=== PATIENT | male | born 1965 | race Caucasian/White ===

== ENCOUNTER → 2023-01-23 | Outpatient (CLI) | payer OTHER, SELFPAY ==
[2023-01-23 12:08] LABS: Absolute Lymphocyte Count 1.74 X10^3/uL (0.83-4.51); Absolute Neutrophil Count 3.8 X10^3/uL (2.0-7.7); Basophil# 0.05 X10^3/uL; Basophil% 0.7 % (0-1); Eosinophil# 0.24 X10^3/uL; Eosinophils% 3.6 % (0-5); Hematocrit 45.8 % (40-54); Hemoglobin 15.5 g/dL (13.0-16.5); Lymphocyte # 1.74 X10^3/ul (0.83-4.51); Mean Corp Hgb Conc 33.8 g/dL (32-36); Mean Corpuscular Volume 88.6 fL (80-94); Mean Platelet Vol. 11.1 fl (6.2-12.0); Monocyte# 0.87 X10^3/uL; NRBC Flagged by Analyzer 0 % (0-5); Neutrophil # 3.78 X10^3/uL (2.7-7.7); Neutrophil % 56.4 % (47-70); Platelet Count 204 K/mm3 (150-450); RBC Distribution Width CV 12.7 % (11.6-14.6); RBC Distribution Width SD 41.1 fl (35.1-43.9); Red Blood Count 5.17 M/mm3 (4.6-6.2); White Blood Count 6.7 K/mm3 (4.4-11.0)
[2023-01-23 12:32] LABS: Hemoglobin A1c 6.7 % (3.8-5.6)
[2023-01-23 12:42] LABS: Vitamin B12 359 pg/mL (211-911); Vitamin D,25 Hydroxy 24.5 ng/mL
[2023-01-23 12:51] LABS: ALB/GLOB Ratio 0.9 RATIO (0.9-2.4); AST(SGOT) 20 U/L (15-37); Alanine Aminotransfer ALT/SGPT 28 U/L (16-61); Alkaline Phosphatase 76 U/L (45-117); Anion Gap 5 (5-15); BUN 15 mg/dL (7-18); BUN/Creat Ratio 13.6 RATIO (10-20); Calcium,Total 9.1 mg/dL (8.5-10.1); Chloride 106 mmol/L (98-107); Cholesterol 170 mg/dL (200); EST Glomerular Filtration Rate 73 mL/min (>60); Est Glom Filt Rate - Afr Amer 89 mL/min (>60); Free T3 3.1 pg/mL (2.18-3.98); Globulin 4.3 g/dL (2.2-4.2); Glucose 111 mg/dL (74-106); High Density Lipoprotein 39 mg/dL; PSA,Total - Annual Screen 0.65 ng/mL (0.00-4.00); Potassium 4.1 mmol/L (3.5-5.1); Protein, Total 8.3 g/dL (6.4-8.2); Sodium Level 137 mmol/L (136-145); T4 Free Direct 1.02 ng/dL (0.76-1.46); Thyroid Stim Hormone (TSH) 2.29 uIU/mL (0.358-3.74); Triglycerides 152 mg/dL; Very Low Density Lipoprotein 30 mg/dL (5-40)
[2023-01-28 12:09] LABS: Testosterone, % Free 2.31 % (1.50-4.20); Testosterone, Free 9.79 ng/dL (5.00-21.00); Testosterone, Total 424 ng/dL (264-916)
== END | disposition home or self-care (01) ==
PROVIDERS: PCP Internal Medicine; Referring Provider Internal Medicine; Visit Provider Internal Medicine
DX: Z00.00 Encounter for general adult medical examination without abnormal findings (principal); R53.83 Other fatigue; R40.0 Somnolence; Z13.220 Encounter for screening for lipoid disorders; Z12.5 Encounter for screening for malignant neoplasm of prostate; E55.9 Vitamin D deficiency, unspecified; E53.8 Deficiency of other specified B group vitamins
CPT/HCPCS: 36415; 80053; 80061; 82306; 82607; 83036; 84153; 84402; 84403; 84439; 84443; 84481; 85025; G0103

== ENCOUNTER → 2023-10-29 | Outpatient (CLI) | payer OTHER, SELFPAY ==
[2023-10-29 16:06] LABS: CRP 9.44 mg/L (0.0-3.0)
[2023-10-29 16:19] LABS: Erythrocyte Sedimentation Rate 9 mm/hr (0-20)
== END | disposition home or self-care (01) ==
LOC: BIMLAB 13:10
PROVIDERS: PCP Internal Medicine; Visit Provider Internal Medicine
DX: R41.3 Other amnesia (principal)
CPT/HCPCS: 36415; 85652; 86140

== ENCOUNTER → 2023-11-20 | Outpatient (CLI) | payer OTHER, SELFPAY ==
--- NOTE | 2023-11-20 13:52 | CDU_ITS ---
Reason For Study: MEMORY CHANGES Rt. Velocities/BP Lt. Velocities/BP Prox CCA 73.2/17.1 cm/sec. Prox CCA 122.1/23.3 cm/sec. Mid CCA 65.5/12.7 cm/sec. Mid CCA 105.2/23.0 cm/sec. Dist CCA 72.1/18.2 cm/sec. Dist CCA 103.4/21.2 cm/sec. Prox ICA 53.7/16.2 cm/sec. Prox ICA 69.5/24.1 cm/sec. Mid ICA 65.9/23.2 cm/sec. Mid ICA 81.8/20.4 cm/sec. Dist ICA 49.4/13.6 cm/sec. Dist ICA 63.4/21.6 cm/sec. Rt. ICA/CCA = 1.01. Lt. ICA/CCA = 0.78. Prox ECA 78.7/5.1 cm/sec. Prox ECA 112.5/8.4 cm/sec. Rt. Vert. 52.0/11.9 cm/sec. Lt. Vert. 54.6/15.4 cm/sec. Right Extracranial There is intimal thickening but no significant atherosclerotic plaque noted in the right common carotid artery. There is intimal thickening but no significant atherosclerotic plaque noted in the right internal carotid artery. There is intimal thickening but no significant atherosclerotic plaque noted in the right external carotid artery. Antegrade flow is noted in the right vertebral artery. Left Extracranial There is intimal thickening but no significant atherosclerotic plaque noted in the left common carotid artery. There is intimal thickening but no significant atherosclerotic plaque noted in the left internal carotid artery. There is intimal thickening but no significant atherosclerotic plaque noted in the left external carotid artery. Antegrade flow is noted in the left vertebral artery. Procedure Carotid Duplex [id number]. This is a Carotid Duplex examination using B-mode, color flow and specral Doppler. Exam performed in department. VL/Carotid Duplex Ultrasound Interpretation Summary No significant atherosclerotic plaque or stenosis noted in the internal carotid arteries bilaterally. Flow within the vertebral arteries is antegrade bilaterally. Ordering Physician: Anna Ferguson Referring Physician: Anna Ferguson Performed By: Nohemi Isaebl RVT and Student
== END | disposition home or self-care (01) ==
PROVIDERS: PCP Internal Medicine; Referring Provider Internal Medicine; Visit Provider Internal Medicine
DX: R41.3 Other amnesia (principal)
CPT/HCPCS: 93880

== ENCOUNTER → 2023-11-26 | Outpatient (CLI) | payer OTHER, SELFPAY ==
--- NOTE | 2023-11-26 07:30 | MRI_ITS ---
STUDY: MRI BRAIN WITH AND WITHOUT CONTRAST REASON FOR EXAM: Male, 58 years old. AMNESIA TECHNIQUE: Standardized multiplanar fat and water weighted pulse sequences were obtained. IV 25ML CLARISCAN was administered for the contrast portion of the examination. COMPARISON: None. FINDINGS: Mild atrophy and minor periventricular white matter ischemic changes without mass effect or restricted diffusion.. Normal bilateral basal ganglia. Normal thalami. There is no extra-axial fluid accumulation. Normal flow voids within the major intracranial circulation suggesting patency by spin echo criteria. Normal venous enhancement. There is no enhancing intra-axial or extra-axial abnormality. Normal sella turcica, pituitary gland, infundibular stalk, optic chiasm and hypothalamus. Normal tectal plate and pineal gland. Normal midbrain, mark and medulla. Normal cerebellum. Normal basal cisterns. Normal bilateral temporal bones. Normal bilateral internal auditory canals. No demonstrated orbital abnormality, within the constraints of a routine brain study. Normal visualized paranasal sinuses. Normal calvarium and skull base. Normal visualized soft tissue structures. Normal visualized upper cervical spine. MRI/Brain W/WO Contrast IMPRESSION: Mild atrophy and minor periventricular white matter ischemic changes without evidence for acute infarct. No enhancing lesions following contrast administration. Electronically Signed: Alexis Hansen MD at 16:50 EDT ,
== END | disposition home or self-care (01) ==
PROVIDERS: PCP Internal Medicine; Referring Provider Internal Medicine; Visit Provider Internal Medicine
DX: R41.3 Other amnesia (principal)
CPT/HCPCS: 70553

== ENCOUNTER → 2023-12-01 | Outpatient (CLI) | payer OTHER, SELFPAY | END | disposition home or self-care (01) | PROVIDERS: PCP Internal Medicine; Referring Provider Internal Medicine; Visit Provider Internal Medicine | DX: R53.83 Other fatigue (principal); R40.0 Somnolence; R41.3 Other amnesia | CPT/HCPCS: 95806 ==

== ENCOUNTER → 2023-12-24 | Outpatient (CLI) | payer OTHER, SELFPAY ==
[2023-12-24 09:41] LABS: Bacteria 0 SEEN /hpf (None Seen); Mucous, Urine 0 SEEN /hpf (<or=2+); Red Blood Cells-Urine 0 SEEN /hpf (0-5); Squamous Epithelial Cells - UA 0 SEEN /hpf (0-5); White Blood Cells 0 SEEN /hpf (0-5)
[2023-12-24 12:11] LABS: Color, Urine Yellow (Yellow); Glucose, Dipstick 1000 mg/dl (Normal); Ketone-Dipstick 50 mg/dl (Negative); Leukocyte Esterase-Dipstick Negative /ul (Negative); Nitrite-Dipstick Negative (Negative); Occult Blood-Urine Negative /ul (Negative); Protein-Dipstick Negative (Negative); Urine Bilirubin Dipstick Negative (Negative); Urine Clarity Clear (Clear); Urine Urobilinogen Normal (Normal)
[2023-12-24 12:15] LABS: Absolute Lymphocyte Count 1.76 X10^3/uL (0.83-4.51); Absolute Neutrophil Count 4.2 X10^3/uL (2.0-7.7); Basophil# 0.04 X10^3/uL; Basophil% 0.6 % (0-1); Eosinophil# 0.16 X10^3/uL; Eosinophils% 2.3 % (0-5); Hematocrit 46.5 % (40-54); Hemoglobin 15.5 g/dL (13.0-16.5); Lymphocyte # 1.76 X10^3/ul (0.83-4.51); Lymphocyte % 25.1 % (19-41); Mean Corp Hgb Conc 33.3 g/dL (32-36); Mean Corpuscular Hgb 29.2 pg (27.0-32.0); Mean Corpuscular Volume 87.7 fL (80-94); Mean Platelet Vol. 11.8 fl (6.2-12.0); Monocyte% 11.4 % (0-10); NRBC Flagged by Analyzer 0 % (0-5); Neutrophil # 4.23 X10^3/uL (2.7-7.7); Neutrophil % 60.3 % (47-70); Platelet Count 204 K/mm3 (150-450); RBC Distribution Width CV 12.7 % (11.6-14.6)
[2023-12-24 12:33] LABS: Vitamin D,25 Hydroxy 29.9 ng/mL
[2023-12-24 12:35] LABS: Hemoglobin A1c 11.5 % (3.8-5.6)
[2023-12-24 12:39] LABS: ALB/GLOB Ratio 0.9 RATIO (0.9-2.4); AST(SGOT) 39 U/L (15-37); Alanine Aminotransfer ALT/SGPT 52 U/L (16-61); Albumin, Serum 3.5 g/dL (3.2-5.0); Alkaline Phosphatase 74 U/L (45-117); Anion Gap 8 (5-15); BUN 17 mg/dL (7-18); BUN/Creat Ratio 15.7 RATIO (10-20); Calcium,Total 8.9 mg/dL (8.5-10.1); Chloride 102 mmol/L (98-107); Cholesterol 188 mg/dL (200); Creatinine, Serum 1.08 mg/dL (0.70-1.30); EST Glomerular Filtration Rate 75 mL/min (>60); Est Glom Filt Rate - Afr Amer 90 mL/min (>60); Globulin 4.1 g/dL (2.2-4.2); Glucose 263 mg/dL (74-106); High Density Lipoprotein 40 mg/dL; Potassium 4.7 mmol/L (3.5-5.1); Protein, Total 7.6 g/dL (6.4-8.2); Sodium Level 134 mmol/L (136-145); Thyroid Stim Hormone (TSH) 2.12 uIU/mL (0.358-3.74); Triglycerides 189 mg/dL; Very Low Density Lipoprotein 38 mg/dL (5-40)
== END | disposition home or self-care (01) ==
LOC: BIMLAB 09:04
PROVIDERS: PCP Internal Medicine; Referring Provider Internal Medicine; Visit Provider Internal Medicine
DX: Z00.00 Encounter for general adult medical examination without abnormal findings (principal); Z13.220 Encounter for screening for lipoid disorders; R53.81 Other malaise; R53.83 Other fatigue; R73.9 Hyperglycemia, unspecified; E55.9 Vitamin D deficiency, unspecified
CPT/HCPCS: 36415; 80053; 80061; 81001; 82306; 83036; 84443; 85025

== ENCOUNTER → 2024-03-24 | Outpatient (CLI) | payer OTHER, SELFPAY ==
--- OUTSIDE RECORDS SUMMARY | 2024-03-24 10:53 | XMS RPT_ITS | CCD ---
Author Organization [facility] Care Team Providers Care Passenger Conductor Name Role Phone Kenyatta Green Unavailable Unavailable Caitlin Weldon Unavailable Caitlin Weldon Unavailable Sarah Fan Unavailable [phone] Kenyatta Green Unavailable Unavailable Wally Wick PA-C Primary Care Provider [phone] Wally WICK Primary Care Unavailable Wally Wick PA-C Primary Care Provider [phone] Allergies Allergy Classification Reported Allergen(s) Allergy Type Date of Onset Reaction(s) Facility (4 sources) prochlorperazine drug allergy 7 [facility] Work Phone: (3 sources) Prochlorperazine; Translations: [PROCHLORPERAZINE EDISYLATE] Drug Allergy 7 Unknown [facility] Medications Current Medications Medication Drug Class(es) Dates Sig (Normalized) Sig (Original) doxycycline monohydrate 100 mg oral tablet (1 source) Tetracycline-cla ss Drug Start: 05-12-2022 End: 05-19-2022 take 1 tablet by mouth twice daily doxycycline monohydrate 100 mg tablet Indications: Sinobronchitis Take 1 tablet by mouth twice daily for 7 days. 14 tablet 0 05/12/2022 05/19/2022 Active Comment on above: Take 1 tablet by fabiola twice daily for 7 days. predniSONE 20 mg oral tablet (1 source) Start: 05-12-2022 End: 05-17-2022 take 2 tablets by mouth once daily predniSONE (DELTASONE) 20 mg tablet Indications: Sinobronchitis Take 2 tablets by mouth once daily for 5 days. 10 tablet 0 05/12/2022 05/17/2022 Active Comment on above: Take 2 tablets by mo [facility] once daily for 5 days. Completed/Discontinued Medications Medication Drug Class(es) Dates Sig (Normalized) Sig (Original) acetaminophen 500 mg oral tablet (2 sources) take 1 tablet by mouth every eight hours as needed acetaminophen (TYLENOL) 500 mg tablet Take 500 mg by mouth every 8 hours as needed. 0 Active Comment on above: Take 500 mg by mouth every 8 hours as needed. [id number] 200 actuat albuterol 0.09 mg/actuat metered dose inhaler (1 source) beta2-Adrenergic Agonist Start: 05-12-2022 take 2 puff(s) by inhalation every four hours as needed albuterol HFA (PROAIR HFA) 90 mcg/actuation inhaler Indications: Sinobronchitis Inhale 2 Puffs as instructed every 4 hours as needed. 1 Each 0 05/12/2022 Active Comment on above: Inhale 2 Puffs as in structed every 4 hours as needed. cyclobenzaprine hydrochloride 10 mg oral tablet (2 sources) Muscle Relaxant Start: 08-19-2019 take 1 tablet by mouth three times daily as needed cyclobenzaprine (FLEXERIL) 10 mg tablet Indications: Acute right-sided low back pain without sciatica , Somatic dysfunction of spine, lumbar Take 1 tablet by mouth three times daily as needed. 15 tablet 0 08/19/2019 Active Comment on above: Take 1 tablet by [facility] three times daily as needed. Drug Treatment Unknown - unknown (1 source) No information available. Problems Active Problems Problem Classification Problem Date Documented Date Episodic/Chronic Other nutritional; endocrine; and metabolic disorders (2 sources) Body mass index 40+ - severely obese; Translations: [Morbid (severe) obesity due to excess calories] Onset: 12-28-2010 10-01-2017 Chronic Other screening for suspected conditions (not mental disorders or infectious disease) (1 source) No current problems or disability 11-13-2016 Other upper respiratory infections (1 source) Chronic sinusitis; Translations: [Chronic sinusitis, unspecified] Chronic Spondylosis; intervertebral disc disorders; other back problems (2 sources) Degeneration of lumbar intervertebral disc; Translations: [Other intervertebral disc degeneration, lumbar region] Onset: 07-28-2019 07-28-2019 Chronic Unclassified (2 sources) Disorder of body wall; Translations: [Disorder of bone, unspecified] Onset: 11-29-2016 12-19-2016 Past or Other Problems Problem Classification Problem Date Documented Da te Episodic/Chronic Blindness and vision defects (4 sources) Bilateral hyperopia of eyes; Translations: [Hypermetropia, bilateral] Onset: 09-21-2014 06-22-2018 Episodic Other and unspecified benign neoplasm (4 sources) Benign neoplasm of rib; Translations: [Benign neoplasm of ribs, sternum and clavicle] Onset: 11-12-2016 11-12-2016 Episodic Other lower respiratory disease (2 sources) Rib pain; Translations: [Pleurodynia] Onset: 11-29-2016 11-29-2016 Episodic Other non-traumatic joint disorders (2 sources) Pain in lower limb; Translations: [Pain in unspecified knee] Onset: 01-13-2009 01-13-2009 Episodic Other non-traumatic joint disorders (2 sources) Effusion of joint; Translations: [Effusion, unspecified knee] Onset: 01-13-2009 01-13-2009 Episodic Other non-traumatic joint disorders (2 sources) Shoulder pain; Translations: [Pain in unspecified shoulder] Onset: 07-25-2009 07-25-2009 Episodic Residual codes; unclassified (2 sources) Chews tobacco ; Translations: [Tobacco use] Onset: 12-28-2010 12-28-2010 Episodic Spondylosis; intervertebral disc disorders; other back problems (2 sources) Backache; Translations: [Dorsalgia, unspecified] Onset: 07-25-2009 07-25-2009 Episodic Results Test Name Value Interpretation Reference Range Facility [facility] 05-12-2022 CN Office Visit (UCWSTR) ANAI MALONE ([id number]) 1965 M Date Time Provider Department 05/12/22 2:30 PM JAKETERRELL During your visit today, we recorded the following information about you: Temperature Pulse Respiration Blood pressure 98.1 degrees 70/minute 20/minute 132/74 Weight 132 kg Terrell Garcia APRN.CNP 05/12/2022 3:31 PM Signed Subjective HPI HPI Anai Malone is a 56 year old male who presents today for CC of cough, congestion. This started 1 week/worsening. Has tried nothing for relief. Symptoms are worsened by nothing. Risk factors hx of bad coughs. 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 doxycycline monohydrate 100 mg tablet Take 1 tablet by mouth twice daily for 7 days. predniSONE (DELTASONE) 20 mg tablet Take 2 tablets by mouth once daily for 5 days. albuterol HFA (PROAIR HFA) 90 mcg/actuation inhaler Inhale 2 Puffs as instructed every 4 hours as needed. cyclobenzaprine (FLEXERIL) 10 mg tablet Take 1 tablet by mouth three times daily as needed. (Patient not taking: Reported on 12/21/2019 ) FAMILY HISTORY Problem Relation Age of Onset Diabetes Mother Coronary Artery Disease Father [place] Coronary Artery Disease Brother Social History Tobacco Use Smoking status: Former Types: Cigars Smokeless tobacco: Current Types: Snuff Vaping Use Vaping Use: Never used Substance Use Topics Alcohol use: Yes Alcohol/week: 0.8 standard drinks Types: 1 Cans of beer per week Comment: ocassional Drug use: No Review of Systems Constitutional: Negative for fever. HENT: Positive for congestion and sore throat. Negative for ear pain and nosebleeds. Respiratory: Positive for cough and sputum production. Negative for shortness of breath and wheezing. Cardiovascular: Negative for chest pain. Musculoskeletal: Negative for neck pain. Skin: Negative for itching and rash. Objective Blood pressure 132/74, pulse 70, temperature 36.7 ?C (98.1 ?F), resp. rate 20, weight 132 kg (291 lb), SpO2 97 %. Physical Exam Constitutional: General: He is not in acute distress. Appearance: He is not toxic-appearing or diaphoretic. HENT: Head: Normocephalic and atraumatic. Cardiovascular: Rate and Rhythm: Normal rate and regular rhythm. Heart sounds: Normal heart sounds, S1 normal and S2 normal. Pulmonary: Effort: Pulmonary effort is normal. Breath sounds: Examination of the right-lower field reveals rhonchi. Examination of the left-lower field reveals rhonchi. Rhonchi present. Lymphadenopathy: Cervical: No cervical adenopathy. Right cervical: No superficial cervical adenopathy. Left cervical: No superficial cervical adenopathy. Neurological: Mental Status: He is alert and oriented to person, place, and time. Gait: Gait is intact. ASSESSMENT/PLAN: 1. Sinobronchitis - ICD9: 473.9, 490, ICD10: J32.9, J40 - Will begin treatment with as per antibiotic as written, see orders - Supportive care with plenty of fluids, rest, and analgesia prn. - Follow up in 3-5 days if symptoms persist or worsen. - DOXYCYCLINE MONOHYDRATE 100 MG TABLET - PREDNISONE 20 MG TABLET - ALBUTEROL SULFATE HFA 90 MCG/ACTUATION AEROSOL INHALER Terrell Garcia APRN.CLINICAL PROVIDER TRAINER Allergies As of Date: 05/12/2022 Noted Allergy Reaction COMPAZINE (PROCHLORPERAZINE EDISY*02/11/2007 16 - Unknown Date Reviewed: 01/08/2021 Reviewed by: Edyta Salazar OD - Fully Assessed Reason for Visit: Cough [28] Cmt: nasal drainage x 1 week, fever during week Primary Visit Diagnosis:Sinobronch itis [J32.9, J40] Order(s):doxycycline monohydrate 100 mg tabletTake 1 tablet by mouth twice daily for 7 days.Disp: 14 tabletRfl: 0 predniSONE (DELTASONE) 20 mg tabletTake 2 tablets by mouth once daily for 5 days.Disp: 10 tabletRfl: 0 albuterol HFA (PROAIR HFA) 90 mcg/actuation inhalerInhale 2 Puffs as instructed every 4 hours as needed.Disp: 1 EachRfl: 0 Prescriptions as of 05/12/2022 - doxycycline monohydrate 100 mg tablet Take 1 tablet by mouth twice daily for 7 days. - predniSONE (DELTASONE) 20 mg tablet Take 2 tablets by mouth once daily for 5 days. - albuterol HFA (PROAIR HFA) 90 mcg/actuation inhaler Inhale 2 Puffs as instructed every 4 hours as needed. - acetaminophen (TYLENOL) 500 mg tablet Take 500 mg by mouth every 8 hours as needed. - cyclobenzaprine (FLEXERIL) 10 mg tablet Take 1 tablet by mouth (more content not included)... Normal [facility] Office Visiton 11-29-2016 Documentation of current medications (procedure) Done Invalid Interpretation Code [facility] Work Phone: Documentation of current medications (procedure) T Invalid Interpretation Code [facility] Work Phone: Protein mass conc Done [facility] Work Phone: [facility] Work [facility]: Tobacco smoking status HIIS Never Invalid Interpretation Code [facility] Work Phone: Tobacco smoking status NHIS Never smoker [facility] Work Phone: Tobacco use [facility] Never smoker Invalid Interpretation Code [facility] Work Phone: Office Visiton 11-12-2016 Protein mass conc Done [facility] Work Phone: Protein mass conc [facility] Work Phone: Tobacco smoking status NHIS Never [facility] Work Phone: Tobacco smoking status NHIS Never smoker [facility] Work Phone: Vital Signs Date Time Vital Sign Value Performing Clinician Facility 05-12-2022 15:04-0500 Body temperature 98.1 [degF] Terrell Garcia APRN.CLINICAL PROVIDER TRAINER Work Phone: [facility] 05-12-2022 15:04-0500 Body weight 132 kg Terrell Garcia SENIOR PIPING DESIGNER.CLINICAL PROVIDER TRAINER Work Phone: [facility] 05-12-2022 15:04-0500 Diastolic blood pressure 74 mm[Hg] Terrell Garcia SENIOR PIPING DESIGNER.CLINICAL PROVIDER TRAINER Work Phone: [facility] 05-12-2022 15:04-0500 Heart rate 70 /min Terrell Garcia SENIOR PIPING DESIGNER.CLINICAL PROVIDER TRAINER Work Phone: [facility] 05-12-2022 15:04-0500 Respiratory rate 20 /min Terrell Garcia SENIOR PIPING DESIGNER.CLINICAL PROVIDER TRAINER Work Phone: [facility] 05-12-2022 15:04-0500 SaO2% (BldA) [Mass fraction] 97 % Terrell Garcia SENIOR PIPING DESIGNER.CLINICAL PROVIDER TRAINER Work Phone: [facility] 05-12-2022 15:04-0500 Systolic blood pressure 132 mm[Hg] Terrell Garcia SENIOR PIPING DESIGNER.CLINICAL PROVIDER TRAINER Work Phone: [facility] 11-12-2016 09:29-0400 BMI (Body Mass Index) 42.53 kg/m2 [facility] Work Phone: 11-12-2016 09:29-0400 Height 175.26 cm [facility] Work Phone: 11-12-2016 09:29-0400 Weight 130.64 kg [facility] Work Phone: Encounters Encounter Date Encounter Type Care Provider Facility Start: 05-12-2022 End: 05-12-2022 ambulatory M ISAEL WICK Facility:[facility] Start: 05-12-2022 End: 05-12-2022 Patient encounter procedure Terrell King YULISA.CLINICAL PROVIDER TRAINER Work Phone: [facility] Comment on above: Sinobronchitis (Prim abraham Dx) Start: 12-22-2020 Telephone encounter Monty Tobar DO Work Phone: Radiology Comment on above: Release Of Medical R ecords Start: 12-28-2010 Physical examination Monty campbell DO, DO Work Phone: [facility] Work Phone: Procedures Date Procedure Procedure Detail Performing Clinician Start: 03-03-2017 Adult depression screening assessment Monty Johnston DO, DO Work Phone: Plan of Treatment Date Care Activity Detail Author Start: 03-03-2022 LIPID SCREEN LIPID SCREEN [facility] Start: 03-03-2022 PROSTATE CANCER SCREENING DISCUSSION PROSTATE CANCER SCREENING DISCUSSION [facility] Start: 01-31-2022 Influenza vaccination [facility] Start: 06-02-2021 DEPRESSION ASSESSMENT DEPRESSION ASSESSMENT [facility] Start: 04-12-2021 COLORECTAL CANCER SCREENING COLORECTAL CANCER SCREENING [facility] Start: 04-12-2021 FECAL OCCULT BLOOD FECAL OCCULT BLOOD [facility] Start: 12-28-2020 Urine microalbumin profile DTAP,TDAP,TD (2 - Td or Tdap) [facility] Start: 03-03-2020 DIABETES SCREEN DIABETES SCREEN [facility] Start: 03-03-2018 Adult depression screening assessment DEPRESSION SCREENING [facility] Start: 11-29-2016 End: 11-29-2016 Appointment Appointment [facility] Work Phone: Start: 11-12-2016 End: 11-12-2016 Ct thorax w/o & w/dye CT Chest with and without Contrast [facility] Work Phone: Start: 2015 SHINGRIX VACCINE (1 of 2) SHINGRIX VACCINE (1 of 2) [facility] Start: 2010 COLOGUARD (FIT-DNA) COLOGUARD (FIT-DNA) [facility] Start: 2010 Colonoscopy COLONOSCOPY [facility] Start: [address] COLONOGRAPHY [facility] Start: 2010 SIGMOIDOSCOPY SIGMOIDOSCOPY [facility] Start: 1983 HEPATITIS C SCREENING HEPATITIS C SCREENING [facility] Start: 1983 HIV SCREENING HIV SCREENING [facility] Start: 1970 COVID-19 VACCINE (#1) COVID-19 VACCINE (#1) [facility] Start: 1965 COVID-19 VACCINE (#1) COVID-19 VACCINE (#1) [facility] Start: 1965 HEPATITIS B (1 of 3 - 3-dose series) HEPATITIS B (1 of 3 - 3-dose series) [facility] Immunizations Immunization Date Immunization Notes Care Provider Reanna thorne 12-28-2010 tetanus toxoid, redu hope diphtheria toxoid, and acellular pertussis vaccine, adsorbed Monty Johnston DO, DO Work Phone: [facility] Work Phone: Payers Date Payer Category Payer Unknown MMO MMO [employer] [id number] 2018-Present [phone] [address] [place] [address] PPO [id number] 2018 Unknown [id number] 2018 Unknown MMO MMO [employer] [id number] 2018-Present [phone] [address] [place] [address] PPO [id number] 2017 Unknown [employer] [id number] 11/30/2017-Present [address] [place] [address] Indemnity [id number] Social History Date Type Detail Facility Start: 09-21-2014 End: 05-12-2022 Tobacco smoking status NHIS Ex-smoker [facility] History of tobacco use Cigar Smoker [facility] Start: 09-21-2014 End: 05-12-2022 Tobacco use and exposure User of smokeless tobacco [facility] History of tobacco use Snuff User [facility] Start: 12-21-2019 End: 05-12-2022 Alcohol intake Current drinker of alcohol (finding) [facility] Start: 12-21-2019 End: 05-12-2022 Alcohol intake [facility] Start: 09-21-2014 History SDOH Alcohol Comment ocassional [facility] Start: 1965 Sex Assigned At Not on file [facility] Start: 12-09-2020 End: 01-08-2021 Exposure to SARS-CoV-2 (event) Not sure [facility] History of tobacco use Current smoker [facility] Work Phone: Progress note 05-12-2022 Note Date & Type Note Facility 05-12-2022 Note HNO ID: [id number] Author: Terrell Garcia APRN.CLINICAL PROVIDER TRAINER Service: ? Author Type: Nurse Practitioner Type: Progress Notes Filed: 05/12/2022 3:31 PM Note Text: Subjective HPI HPI Anai Malone is a 56 year old male who presents today for CC of cough, congestion. This started 1 week/worsening. Has tried nothing for relief. Symptoms are worsened by nothing. Risk factors hx of bad coughs. 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 doxycycline monohydrate 100 mg tablet Take 1 tablet by mouth twice daily for 7 days. predniSONE (DELTASONE) 20 mg tablet Take 2 tablets by mouth once daily for 5 days. albuterol HFA (PROAIR HFA) 90 mcg/actuation inhaler Inhale 2 Puffs as instructed every 4 hours as needed. cyclobenzaprine (FLEXERIL) 10 mg tablet Take 1 tablet by mouth three times daily as needed. (Patient not taking: Reported on 12/21/2019 ) FAMILY HISTORY Problem Relation Age of Onset Diabetes Mother Coronary Artery Disease Father [place] Coronary Artery Disease Brother Social History Tobacco Use Smoking status: Former Types: Cigars Smokeless tobacco: Current Types: Snuff Vaping Use Vaping Use: Never used Substance Use Topics Alcohol use: Yes Alcohol/week: 0.8 standard drinks Types: 1 Cans of beer per week Comment: ocassional Drug use: No Review of Systems Constitutional: Negative for fever. HENT: Positive for congestion and sore throat. Negative for ear pain and nosebleeds. Respiratory: Positive for cough and sputum production. Negative for shortness of breath and wheezing. Cardiovascular: Negative for chest pain. Musculoskeletal: Negative for neck pain. Skin: Negative for itching and rash. Objective Blood pressure 132/74, pulse 70, temperature 36.7 ?C (98.1 ?F), resp. rate 20, weight 132 kg (291 lb), SpO2 97 %. Physical Exam Constitutional: General: He is not in acute distress. Appearance: He is not toxic-appearing or diaphoretic. HENT: Head: Normocephalic and atraumatic. Cardiovascular: Rate and Rhythm: Normal rate and regular rhythm. Heart sounds: Normal heart sounds, S1 normal and S2 normal. Pulmonary: Effort: Pulmonary effort is normal. Breath sounds: Examination of the right-lower field reveals rhonchi. Examination of the left-lower field reveals rhonchi. Rhonchi present. Lymphadenopathy: Cervical: No cervical adenopathy. Right cervical: No superficial cervical adenopathy. Left cervical: No superficial cervical adenopathy. Neurological: Mental Status: He is alert and oriented to person, place, and time. Gait: Gait is intact. ASSESSMENT/PLAN: 1. Sinobronchitis - ICD9: 473.9, 490, ICD10: J32.9, J40 - Will begin treatment with as per antibiotic as written, see orders - Supportive care with plenty of fluids, rest, and analgesia prn. - Follow up in 3-5 days if symptoms persist or worsen. - DOXYCYCLINE MONOHYDRATE 100 MG TABLET - PREDNISONE 20 MG TABLET - ALBUTEROL SULFATE HFA 90 MCG/ACTUATION AEROSOL INHALER Terrell Garcia APRN.CHUCK [facility] History of Present illness Narrative 05-12-2022 Terrell Garcia APRN.CHUCK - 05/12/2022 3:29 PM EST Note Date & Type Note Facility 05-12-2022 History of Presen t illness Narrative Subjective HPI HPI Anai Malone is a 56 year old male who presents today for CC of cough, congestion. This started 1 week/worsening. Has tried nothing for relief. Symptoms are worsened by nothing. Risk factors hx of bad coughs. 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 doxycycline monohydrate 100 mg tablet Take 1 tablet by mouth twice daily for 7 days. predniSONE (DELTASONE) 20 mg tablet Take 2 tablets by mouth once daily for 5 days. albuterol HFA (PROAIR HFA) 90 mcg/actuation inhaler Inhale 2 Puffs as instructed every 4 hours as needed. cyclobenzaprine (FLEXERIL) 10 mg tablet Take 1 tablet by mouth three times daily as needed. (Patient not taking: Reported on 12/21/2019 ) FAMILY HISTORY Problem Relation Age of Onset Diabetes Mother Coronary Artery Disease Father [place] Coronary Artery Disease Brother Social History Tobacco Use Smoking status: Former Types: Cigars Smokeless tobacco: Current Types: Snuff Vaping Use Vaping Use: Never used Substance Use Topics Alcohol use: Yes Alcohol/week: 0.8 standard drinks Types: 1 Cans of beer per week Comment: ocassional Drug use: No Review of Systems Constitutional: Negative for fever. HENT: Positive for congestion and sore throat. Negative for ear pain and nosebleeds. Respiratory: Positive for cough and sputum production. Negative for shortness of breath and wheezing. Cardiovascular: Negative for chest pain. Musculoskeletal: Negative for neck pain. Skin: Negative for itching and rash. Objective Blood pressure 132/74, pulse 70, temperature 36.7 C (98.1 F), resp. rate 20, weight 132 kg (291 lb), SpO2 97 %. Physical Exam Constitutional: General: He is not in acute distress. Appearance: He is not toxic-appearing or diaphoretic. HENT: Head: Normocephalic and atraumatic. Cardiovascular: Rate and Rhythm: Normal rate and regular rhythm. Heart sounds: Normal heart sounds, S1 normal and S2 normal. Pulmonary: Effort: Pulmonary effort is normal. Breath sounds: Examination of the right-lower field reveals rhonchi. Examination of the left-lower field reveals rhonchi. Rhonchi present. Lymphadenopathy: Cervical: No cervical adenopathy. Right cervical: No superficial cervical adenopathy. Left cervical: No superficial cervical adenopathy. Neurological: Mental Status: He is alert and oriented to person, place, and time. Gait: Gait is intact. ASSESSMENT/PLAN: 1. Sinobronchitis - ICD9: 473.9, 490, ICD10: J32.9, J40 - Will begin treatment with as per antibiotic as written, see orders - Supportive care with plenty of fluids, rest, and analgesia prn. - Follow up in 3-5 days if symptoms persist or worsen. - DOXYCYCLINE MONOHYDRATE 100 MG TABLET - PREDNISONE 20 MG TABLET - ALBUTEROL SULFATE HFA 90 MCG/ACTUATION AEROSOL INHALER Terrell Garcia APRN.CLINICAL PROVIDER TRAINER documented in this encounter [facility] Note 12-25-2020 Telephone Encounter - CAITLIN Mosqueda - 12/25/2020 8:37 AM EDTTelephone Encounter - Laurie Christianson Admin Sec - 12/22/2020 2:31 PM EDT Note Date & Type Note Facility 12-25-2020 Miscellaneous Notes CD READY FOR CREATIVE PRODUCER AT [facility] Pt would like to warp picker Disc of xray done on 07/19/19 right flank pain. Would like to warp picker at [place] on 12/28/20 documented in this encounter [facility] Evaluation note Note Date & Type Note Facility Evaluation note Diagnosis Sinobronchitis- Primary Unspecified sinusitis (chronic) documented in this encounter [facility] Summary Purpose Family History No Family History Records Found Advance Directives No Advanced Directives Records Found Additional Source Comments Source Comments (unrecognize d section and content) In the event this informatio n is protected by the Federal Confidentiality of Alcohol and Drug Abuse Patient Records regulations: The Federal rules restrict any use of the information to criminally investigate or prosecute any alcohol or drug abuse patient.[facility] the event this information is protected by the Federal Confidentiality of Alcohol and Drug Abuse Patient Records regulations: The Federal rules restrict any use of the information to criminally investigate or prosecute any alcohol or drug abuse patient.[facility] Reason for Visit (unrecogniz ed section and content) Reason Comments Release Of Medical Records Reason Comments Cough nasal drainage x 1 w [place], fever during week Care Teams (unrecognized sec tion and content) Passenger Conductor Relationship Specialty Start Date End Date Wally Wick PA-C [address] [place] [address] PCP - General Family Practice 03/03/17 Passenger Conductor Relationship Specialty Start Date End Date Wally Wick PA-C [address] [place] [address] PCP - General Family Medicine 03/03/17 (unrecognized sect ion and content) No Status Records Found INFORMATION SOURCE (unrecogn ized section and content) DATE CREATED AUTHOR 05/12/2022 [facility] FOR RECORDS PERTAINING TO PATIENTS WHO ARE OR HAVE BEEN ENROLLED IN A CHEMICAL DEPENDENCY/SUBSTANCEABUSE PROGRAM, SOME INFORMATION MAY BE OMITTED. This clinical summary was aggregated from multiple sources. Caution should be exercised in using it in the provision of clinical care. This summary normalizes information from multiple sources, and as a consequence, information in this document may materially change the coding, format and clinical context of patient data. In addition, data may be omitted in some cases. CLINICAL DECISIONS SHOULD BE BASED ON THE PRIMARY CLINICAL RECORDS. [facility] [employer] [facility]. provides no warranty or guarantee of the accuracy or completeness of information in this document.
[2024-03-24 12:20] LABS: Absolute Lymphocyte Count 1.87 X10^3/uL (0.83-4.51); Absolute Neutrophil Count 4.9 X10^3/uL (2.0-7.7); Basophil# 0.03 X10^3/uL; Basophil% 0.4 % (0-1); Eosinophil# 0.16 X10^3/uL; Eosinophils% 2.1 % (0-5); Hematocrit 43.5 % (40-54); Hemoglobin 14.6 g/dL (13.0-16.5); Lymphocyte # 1.87 X10^3/ul (0.83-4.51); Lymphocyte % 24.2 % (19-41); Mean Corp Hgb Conc 33.6 g/dL (32-36); Mean Corpuscular Hgb 30.2 pg (27.0-32.0); Mean Corpuscular Volume 90.1 fL (80-94); Monocyte# 0.79 X10^3/uL; Monocyte% 10.2 % (0-10); NRBC Flagged by Analyzer 0 % (0-5); Neutrophil # 4.87 X10^3/uL (2.7-7.7); Neutrophil % 62.8 % (47-70); Platelet Count 201 K/mm3 (150-450); RBC Distribution Width CV 13.5 % (11.6-14.6); RBC Distribution Width SD 44.5 fl (35.1-43.9); Red Blood Count 4.83 M/mm3 (4.6-6.2); White Blood Count 7.7 K/mm3 (4.4-11.0)
[2024-03-24 12:53] LABS: Hemoglobin A1c 5.8 % (3.8-5.6)
[2024-03-24 13:24] LABS: ALB/GLOB Ratio 0.9 RATIO (0.9-2.4); AST(SGOT) 23 U/L (15-37); Alanine Aminotransfer ALT/SGPT 36 U/L (16-61); Albumin, Serum 3.5 g/dL (3.2-5.0); Alkaline Phosphatase 64 U/L (45-117); Anion Gap 2 (5-15); BUN 19 mg/dL (7-18); BUN/Creat Ratio 19.2 RATIO (10-20); Calcium,Total 9.1 mg/dL (8.5-10.1); Chloride 109 mmol/L (98-107); Creatinine, Serum 0.99 mg/dL (0.70-1.30); EST Glomerular Filtration Rate 82 mL/min (>60); Est Glom Filt Rate - Afr Amer 100 mL/min (>60); Globulin 3.9 g/dL (2.2-4.2); Glucose 112 mg/dL (74-106); Potassium 4.3 mmol/L (3.5-5.1); Protein, Total 7.4 g/dL (6.4-8.2); Sodium Level 137 mmol/L (136-145)
== END | disposition home or self-care (01) ==
PROVIDERS: PCP Internal Medicine; Referring Provider Internal Medicine; Visit Provider Internal Medicine
DX: E11.9 Type 2 diabetes mellitus without complications (principal); G47.30 Sleep apnea, unspecified
CPT/HCPCS: 36415; 80053; 83036; 85025